=== PATIENT | male | born 1980 | race Caucasian/White ===

== ENCOUNTER 2017-01-31 15:11 | Emergency (ER) | payer BC, MEDICAID, OTHER ==
[~2017-01-31] VITALS: Ht 167.6 cm; Wt 68.0 kg
[~2017-01-31 15:11] MED LIST: ALPR2TAB2 PO; MIRT15TA7 PO
[2017-01-31 15:14] VITALS: BP 141/85
--- NOTE | 2017-01-31 15:14 | NUR ---
[id number] FROM HOME: "MOM CALLED 911 BECAUSE HE WAS DRINKING AT HOME FOR 5 DAYS ". PLACED ON MONITOR. AWAITING MD ORDER
--- NOTE | 2017-01-31 15:50 | NUR ---
Patient eloped from facility. ER MD DR GARCIA notified.
== END 2017-01-31 16:18 | disposition left against medical advice (07) ==
LOC: ER 15:12
DX: F10.129 Alcohol abuse with intoxication, unspecified (principal); F42.9 Obsessive-compulsive disorder, unspecified; Z88.8 Allergy status to other drugs, medicaments and biological substances
CPT/HCPCS: A4606; Z7610

== ENCOUNTER 2017-05-23 23:43 | Emergency (ER) | payer BC, OTHER ==
[~2017-05-23] VITALS: Ht 167.6 cm; Wt 64.9 kg
--- NOTE | 2017-05-23 23:43 | NUR ---
PT RECEIVED FROM DROP OFF BY OBEY Murray/ APPARENT DRUG OVERDOSE X1 USE "HE WENT TO THE BATHROOM AND THEN WAS LIKE THIS MAN". NO C/O PAIN BUT SOB WITH LOW 02 SATURATION 85% ON ARRIVAL NONCOHERENT. WILL CONTINUE TO MONITOR FOR ANY CHANGES
--- NOTE | 2017-05-23 23:45 | NUR ---
NELL CODY AT [facility]
[2017-05-23] MEDS ORDERED: NALOXONE HCL 0.4 MG/ML AMPUL ONE (23:46)
[2017-05-24] MEDS: NALOXONE HCL 0.4 MG/ML AMPUL IV ONE (00:01)
--- NOTE | 2017-05-24 01:10 | NUR ---
PT SPOKE WITH MD CODY AND BOTH DECIDED THIS PT WAS OKAY TO BE D/C
[2017-05-24 01:38] VITALS: BP 174/91
== END 2017-05-24 01:39 | disposition home or self-care (01) ==
LOC: ER 23:46
DX: F11.10 Opioid abuse, uncomplicated (principal); F31.9 Bipolar disorder, unspecified; F10.10 Alcohol abuse, uncomplicated; F42.8 Other obsessive-compulsive disorder; Z90.89 Acquired absence of other organs; Z88.8 Allergy status to other drugs, medicaments and biological substances
CPT/HCPCS: 96374; 99285; A4606; J2310; Z7610